=== PATIENT | male | born 1970 | race Caucasian/White ===

== ENCOUNTER 2017-12-13 15:00 | Emergency (ER) | payer MEDICAID ==
[~2017-12-13] VITALS: Ht 172.7 cm; Wt 81.6 kg
[2017-12-13 15:05] VITALS: Ht 172.7 cm; Wt 81.6 kg
[2017-12-13 17:54] VITALS: BP 122/59
== END 2017-12-13 17:54 | disposition home or self-care (01) ==
LOC: ED 15:00
DX: J18.1 Lobar pneumonia, unspecified organism (principal)
CPT/HCPCS: J7613